=== PATIENT | female | born 1990 | race Caucasian/White ===

== ENCOUNTER 2017-08-10 02:44 | Observation (INO) | payer MEDICAID ==
[~2017-08-10] VITALS: Ht 170.2 cm; Wt 88.9 kg
[2017-08-10] MEDS ORDERED: ACETAMINOPHEN EXTRA STRENGTH 500 MG TABLET ONE (03:28)
[2017-08-10] MEDS ORDERED: SODIUM CHLORIDE 0.9% 1000ML 1,000 ML IV ONE (03:28)
[2017-08-10] MEDS ORDERED: ONDANSETRON HCL 4 MG/2 ML VIAL ONE (03:28)
[2017-08-10 04:56] LABS: BASOPHILS % (AUTO) 0.1 % (0.0-5.0); HEMATOCRIT 24.9 % (36-48); LYMPHOCYTES % (AUTO) 7.4 % (21.0-51.0); MEAN CORPUSCULAR HEMOGLOBIN 31.9 pg (27.0-33.0); MEAN CORPUSCULAR HGB CONC 35.8 g/dL (32.0-36.0); MEAN CORPUSCULAR VOLUME 89.1 fL (79-99); MONOCYTES % (AUTO) 10.5 % (3.0-13.0); PLATELET COUNT (AUTO) 119 K/uL (130-400); RED BLOOD CELL COUNT(AUTO) 2.79 MIL/uL (4.00-5.50); RED CELL DISTRIBUTION WIDTH 12.7 % (11.0-15.5); WHITE BLOOD COUNT (AUTO) 7.9 K/uL (4.8-10.8)
[2017-08-10 05:40] LABS: ALBUMIN 2.6 g/dL (3.5-5.0); BILIRUBIN,TOTAL 0.4 mg/dL (0.2-1.0); CREATININE 0.7 mg/dL (0.5-1.5); TOTAL PROTEIN, SERUM 6.4 g/dL (6.0-8.3)
[2017-08-10 05:41] LABS: POTASSIUM 2.6 mmol/L (3.5-5.1)
[2017-08-10] MEDS ORDERED: POTASSIUM BICARB/CIT AC 25 MEQ TABLET.EFF ONE (05:44)
[2017-08-10 06:35] LABS: APPEARANCE,URINE Turbid (CLEAR); BILIRUBIN,URINE Negative (NEGATIVE); COLOR,URINE Dark Yellow (YELLOW); GLUCOSE, URINE (UA) Negative (NEGATIVE); KETONES,URINE >=80 mg/dL (NEGATIVE); LEUKOCYTE ESTERASE ,URINE Large (NEGATIVE); NITRATE,URINE Negative (NEGATIVE); OCCULT BLOOD,URINE Small (NEGATIVE); PH,URINE 5.5 (5.0-8.0); PROTEIN,URINE POS 2+ (NEGATIVE)
[2017-08-10] MEDS ORDERED: CEFTRIAXONE SODIUM 1 GM ONE (06:41)
[2017-08-10 07:07] LABS: BACTERIA,URINE Many /HPF (None Seen); WBC,URINE 51-100 /HPF (0-1)
[2017-08-10] MEDS ORDERED: CEFTRIAXONE 1GM/D5W 50ML 50 ML IV SCH (10:00)
[2017-08-10] MEDS: CEFTRIAXONE SODIUM 1 GM IVP SCH (10:45)
[2017-08-10] MEDS: OSELTAMIVIR PHOSPHATE 75 MG CAP PO SCH ×2 (11:02→20:04)
[2017-08-10] MEDS: AZITHROMYCIN 250 MG TABLET PO SCH (11:39)
[2017-08-10] MEDS: NS-20 MEQ KCL 1000ML 1,000 ML IV SCH (11:40)
[2017-08-10 11:58] VITALS: BP 106/66
[2017-08-10] MEDS: ONDANSETRON HCL 4 MG/2 ML VIAL IVP PRN (15:27)
[2017-08-10] MEDS: ACETAMINOPHEN 325 MG TAB PO PRN ×2 (15:27→20:05)
[2017-08-10 17:11] VITALS: BP 115/60
[2017-08-10 19:24] VITALS: BP 96/59
[2017-08-11] VITALS (7 sets, daily range): BP systolic 101–116; BP diastolic 52–59
[2017-08-11] MEDS: NS-20 MEQ KCL 1000ML 1,000 ML IV SCH ×4 (00:16→18:40)
[2017-08-11] MEDS: ONDANSETRON HCL 4 MG/2 ML VIAL IVP PRN ×2 (00:48→11:15)
[2017-08-11] MEDS: ACETAMINOPHEN 325 MG TAB PO PRN ×3 (00:48→22:54)
[2017-08-11] MEDS ORDERED: CEFTRIAXONE 1GM/D5W 50ML 50 ML IV SCH (06:00)
[2017-08-11 06:06] LABS: MEAN CORPUSCULAR HGB CONC 34.6 g/dL (32.0-36.0); MEAN CORPUSCULAR VOLUME 89.4 fL (79-99); PLATELET COUNT (AUTO) 143 K/uL (130-400); RED BLOOD CELL COUNT(AUTO) 2.68 MIL/uL (4.00-5.50); RED CELL DISTRIBUTION WIDTH 12.7 % (11.0-15.5); WHITE BLOOD COUNT (AUTO) 8.6 K/uL (4.8-10.8)
[2017-08-11] MEDS: OSELTAMIVIR PHOSPHATE 75 MG CAP PO SCH ×2 (08:45→20:57)
[2017-08-11] MEDS: AZITHROMYCIN 250 MG TABLET PO SCH (10:01)
[2017-08-11] MEDS: CEFTRIAXONE SODIUM 1 GM IVP SCH (10:46)
[2017-08-12 03:59] VITALS: BP 96/52
[2017-08-12] MEDS: NS-20 MEQ KCL 1000ML 1,000 ML IV SCH (04:34)
[2017-08-12 05:16] LABS: BASOPHILS % (AUTO) 0.3 % (0.0-5.0); EOSINOPHILS % (AUTO) 1.4 % (0.0-8.0); HEMATOCRIT 23.1 % (36-48); LYMPHOCYTES % (AUTO) 18.2 % (21.0-51.0); MEAN CORPUSCULAR HEMOGLOBIN 31.2 pg (27.0-33.0); MEAN CORPUSCULAR HGB CONC 34.9 g/dL (32.0-36.0); MEAN CORPUSCULAR VOLUME 89.4 fL (79-99); MONOCYTES % (AUTO) 10.3 % (3.0-13.0); NEUTROPHILS % (AUTO) 69.8 % (40.0-77.0); PLATELET COUNT (AUTO) 159 K/uL (130-400); RED BLOOD CELL COUNT(AUTO) 2.59 MIL/uL (4.00-5.50); RED CELL DISTRIBUTION WIDTH 13.2 % (11.0-15.5); WHITE BLOOD COUNT (AUTO) 6.9 K/uL (4.8-10.8)
[2017-08-12 05:40] LABS: BILIRUBIN,TOTAL 0.3 mg/dL (0.2-1.0); CREATININE 0.5 mg/dL (0.5-1.5); POTASSIUM 3.4 mmol/L (3.5-5.1); TOTAL PROTEIN, SERUM 5.4 g/dL (6.0-8.3)
[2017-08-12 07:28] VITALS: BP 104/57
[2017-08-12] MEDS: OSELTAMIVIR PHOSPHATE 75 MG CAP PO SCH (08:26)
[2017-08-12] MEDS: AZITHROMYCIN 250 MG TABLET PO SCH (10:22)
[2017-08-12] MEDS: CEFTRIAXONE SODIUM 1 GM IVP SCH (10:27)
[2017-08-12 11:38] VITALS: BP 96/53
[2017-08-12] MEDS ORDERED: NITR100C4 PO (14:16)
[2017-08-12] MEDS ORDERED: FERS325 PO (14:17)
== END 2017-08-12 14:45 | disposition home or self-care (01) ==
LOC: EDH 02:44 → EDHIP 02:45 → WSH 09:50
PROVIDERS: ADMIT Obstetrics & Gynecology; ATTEND Obstetrics & Gynecology
DX: O21.0 Mild hyperemesis gravidarum (principal); O99.280 Endocrine, nutritional and metabolic diseases complicating pregnancy, unspecified trimester; O26.892 Other specified pregnancy related conditions, second trimester; R50.9 Fever, unspecified; E87.6 Hypokalemia; Z3A.16 16 weeks gestation of pregnancy
CPT/HCPCS: 36415 ×3; 76805; 80053 ×2; 81001; 82009; 85025 ×2; 85027; 87040 ×2; 87088; 87186; 87804 ×2; 96365; 96366 ×3; 96375 ×2; 96376 ×2; 99285; G0378 ×60; J0696 ×4; J2405 ×4; J3480 ×5; J7030

== ENCOUNTER 2018-01-21 20:37 | Observation (INO) | payer MEDICAID ==
[~2018-01-21] VITALS: Ht 170.2 cm; Wt 93.9 kg
[~2018-01-21 20:37] MED LIST: FERS325 PO; NITR100C4 PO
[2018-01-21] MEDS ORDERED: LACTATED RINGERS 1000ML 1,000 ML IV SCH (21:00)
[2018-01-21 21:18] LABS: APPEARANCE,URINE Clear (CLEAR); BILIRUBIN,URINE Negative (NEGATIVE); COLOR,URINE Yellow (YELLOW); GLUCOSE, URINE (UA) Negative (NEGATIVE); KETONES,URINE Negative (NEGATIVE); LEUKOCYTE ESTERASE ,URINE Negative (NEGATIVE); NITRATE,URINE Negative (NEGATIVE); OCCULT BLOOD,URINE Negative (NEGATIVE); PROTEIN,URINE Negative (NEGATIVE)
[2018-01-21 21:43] VITALS: BP 119/73
== END 2018-01-21 22:00 | disposition home or self-care (01) ==
LOC: EDH 20:37 → LDH 20:58
PROVIDERS: ADMIT Obstetrics & Gynecology; ATTEND Obstetrics & Gynecology
DX: O26.893 Other specified pregnancy related conditions, third trimester (principal); O46.93 Antepartum hemorrhage, unspecified, third trimester; O62.9 Abnormality of forces of labor, unspecified; M54.5 Low back pain; Z3A.39 39 weeks gestation of pregnancy
CPT/HCPCS: 81003; 99285; G0378